=== PATIENT | female | born 1995 | race Two or more races ===

== ENCOUNTER 2024-10-29 06:30 | Inpatient (IN) ==
[2024-10-29] MEDS ORDERED: PITOCIN IVP ONE (06:50)
[2024-10-29] MEDS ORDERED: NUBAIN INJ 20 MG AMP IVP PRN (06:50)
[2024-10-29] MEDS ORDERED: REGLAN INJ 10 MG VIAL IVP PRN (06:50)
[2024-10-29] MEDS ORDERED: ZOFRAN INJ 4 MG VIAL IVP PRN (06:50)
[2024-10-29] MEDS ORDERED: D5 1/2 NS 1,000 ML 1,000 ML IV ONE (06:52)
[2024-10-29] MEDS: D5 1/2 NS 1,000 ML 1,000 ML IV SCH (07:00)
[2024-10-29] MEDS: OXYTOCIN 20 UNIT/1,000 ML-NS 20 UNIT/1,000 ML PLAST..BAG IV PRN (07:15)
--- NOTE | 2024-10-29 07:16 | DR.OB ---
OB QUICK NOTE Assessment/Plan (1) Elective induction of labor planned: Assessment/Plan: L&D 10/29/24 at 7:00am S-No complaint. O-Afebrile,VSS [id number]=[id number] with good LTV, +accel, no decel. CTX=irregular, mild CVX=3cm/50%/-1/VTX AROM with clear fluid. IUPC and FSE placed. A-IUP at 39 0/7 weeks for induction GERD anemia P-Begin pitocin induction F/U labs Anticipate
[2024-10-29] MEDS: LR 1,000 ML IV 1,000 ML IV ONE (08:54)
[2024-10-29] MEDS ORDERED: MOTRIN TAB 800 MG PO PRN (12:35)
--- NOTE | 2024-10-29 13:04 | DR.OB ---
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 Mother and stable. Head delivered over intact perineum. Nuchal cord x 1 reduced. Nose and mouth bulb suctioned. Body delivered over intact perineum. Cord clamped x 2 and cut. handed to attendant. Cord sent for gases. Placenta delivered spontaneously / intact / 3 vessel cord. No CVX tears noted. A small midline second degree tear noted and repaired with 0-vicryl in usual fashion. Viable female infant delivered by , VTX/OA, wt=8'4" and 8/9, stable to NBN. Mother stable to RR. [id number].
[2024-10-29] MEDS ORDERED: AMBIEN PO PRN (13:39)
[2024-10-29] MEDS ORDERED: MILK OF MAGNESIA PO PRN (13:39)
[2024-10-29] MEDS: DERMOPLAST PAIN RELIEF SPRAY TOP PRN (14:10)
[2024-10-29] MEDS: NAROPIN EPIDURAL 0.2% 100 ML ONE (14:49)
[2024-10-29] MEDS: BETADINE SOLN ONE (14:49)
[2024-10-29] MEDS: PITOCIN ONE (14:49)
[2024-10-29] MEDS: FENTANYL VIAL INJ 100 mcg ONE (14:49)
[2024-10-29] MEDS: OXYTOCIN 20 UNIT/1,000 ML-NS 20 UNIT/1,000 ML PLAST..BAG IV SCH (14:50)
[2024-10-29] MEDS: ADACEL or BOOSTRIX TDaP VACCINE IM ONE (15:11)
[2024-10-29] MEDS: MOTRIN TAB 800 MG PO PRN (17:18)
[2024-10-30] MEDS: PROTONIX TAB 40 MG PO SCH (08:00)
[2024-10-30] MEDS: PRENATAL PLUS PO SCH (08:00)
[2024-10-30] MEDS: ULTRAM PO PRN (17:42)
[2024-10-31 04:37] VITALS: PULSE 80
[2024-10-31 07:54] VITALS: BP 122/71; TEMP 98.7; O2SAT 99
[2024-10-31 09:30] VITALS: RESP 18
== END 2024-10-31 10:50 | disposition home or self-care (01) | DRG 807 ==
LOC: LD 06:30 → MED/SURG 13:49
PROVIDERS: ADMIT Specialist; ATTEND Specialist
DX: Z37.0 Single live birth; Z01.812 Encounter for preprocedural laboratory examination; O70.1 Second degree perineal laceration during delivery; O99.613 Diseases of the digestive system complicating pregnancy, third trimester; O99.013 Anemia complicating pregnancy, third trimester; D50.8 Other iron deficiency anemias; K21.9 Gastro-esophageal reflux disease without esophagitis; Z3A.39 39 weeks gestation of pregnancy